=== PATIENT | male | born 1970 | race Caucasian/White ===

== ENCOUNTER 2016-06-26 08:53 | Outpatient (CLI) | payer OTHER ==
[2016-06-26 09:52] LABS: eGFR (African) > 60; eGFR (Non-African) > 60
== END 2016-06-26 08:54 ==
LOC: LAB 08:53
PROVIDERS: ATTEND Family Medicine
DX: Z00.00 Encounter for general adult medical examination without abnormal findings (principal); E80.6 Other disorders of bilirubin metabolism
CPT/HCPCS: 36415; 80053; 80061; 82248

== ENCOUNTER 2016-07-02 07:46 | Outpatient (CLI) | payer OTHER ==
--- NOTE | 2016-07-03 04:33 | Diagnostic Imaging Report ---
Report Submission Date: Jul 02, 2016 10:22:25 PM CDT Patient ~ Study Name: CORA FRAUSTO ~ Date: Jul 02, 2016 9:01:44 AM CDT ~ Modality Type: US Gender: M ~ Description: ABDOMEN COMPLETE : 70 ~ Institution: [facility] Physician: CANDICE CALLAWAY ~ ~ ~ ~ Ultrasound abdomen complete History: Elevated bilirubin Findings: Visualized portions of the pancreas are unremarkable but significant portions are obscured by obesity. Increased hepatic parenchymal echogenicity is observed without focal liver lesion. Antegrade main portal venous flow is present. The abdominal aorta is normal in caliber and patent. The gallbladder is normal without stones, wall thickening, or distention. Common bile duct diameter is 3 mm. The kidneys exhibit normal echogenicity and morphology, measuring 11.3 cm on the right and 11.6 cm on the left. The spleen is normal in size. Impression: 1. Mild hepatic steatosis. 2. Unremarkable gallbladder and common bile duct. ~ Electronically signed on Jul 02, 2016 10:22:25 PM CDT by: Mark KIM
== END 2016-07-02 07:47 ==
LOC: RAD 07:46
PROVIDERS: ATTEND Family Medicine
DX: E80.6 Other disorders of bilirubin metabolism (principal)
CPT/HCPCS: 76700

== ENCOUNTER 2016-08-21 08:14 | Outpatient (CLI) | payer OTHER ==
[2016-08-21 09:00] LABS: eGFR (African) > 60; eGFR (Non-African) > 60
== END 2016-08-21 08:15 ==
LOC: LAB 08:14
PROVIDERS: ATTEND Family Medicine
DX: E78.2 Mixed hyperlipidemia (principal)
CPT/HCPCS: 36415; 80053; 80061

== ENCOUNTER 2017-03-20 15:48 | Outpatient (CLI) | payer OTHER ==
--- NOTE | 2017-03-20 16:56 | Diagnostic Imaging Report ---
CANDICE CALLAWAY [facility] [id number] [facility] [address] [id number] Report Submission Date: Mar 20, 2017 4:12:32 PM LABEL REWINDER Patient Study Name: CORA FRAUSTO Date: Mar 20, 2017 3:53:49 PM LABEL REWINDER Modality Type: CR Gender: M Description: PELVIS : 70 Institution: [facility] Physician: CANDICE CALLAWAY Examination: Plain film hip History: Hip discomfort Comparison exams: None provided Findings: 2 views of the hip demonstrates fixation pins traversing the intertrochanteric region. Mild superior acetabular spurring. No fracture no dislocation. No soft tissue abnormality. Impression: Mild articular degenerative changes and prior fixation pin placement. No fracture or dislocation. Electronically signed on Mar 20, 2017 4:12:32 PM LABEL REWINDER by: Urbano KIM
== END 2017-03-20 16:00 ==
LOC: RAD 15:48
PROVIDERS: ATTEND Family Medicine
DX: M25.551 Pain in right hip (principal)
CPT/HCPCS: 73502

== ENCOUNTER 2017-06-05 15:34 | Outpatient (CLI) | payer OTHER ==
[2017-06-05 16:16] LABS: eGFR (African) > 60; eGFR (Non-African) > 60
== END 2017-06-05 15:36 ==
LOC: LAB 15:34
PROVIDERS: ATTEND Family Medicine
DX: Z00.00 Encounter for general adult medical examination without abnormal findings (principal)
CPT/HCPCS: 36415; 80053; 80061